=== PATIENT | male | born 1945 | race Caucasian/White ===

== ENCOUNTER 2017-04-19 21:03 | Inpatient (IN) | payer MEDICARE ==
[~2017-04-19] VITALS: Ht 182.9 cm; Wt 108.0 kg
[2017-04-19] MEDS ORDERED: KETOROLAC 60MG/2ML VIAL IM ONE (21:45)
[2017-04-19] MEDS ORDERED: MORPHINE SULFATE 4 MG/ML CPJ (NOT FOR IM USE) IV ONE (22:45)
[2017-04-19] MEDS ORDERED: MORPHINE SULFATE 4 MG/ML CPJ (NOT FOR IM USE) IV PRN (23:15)
[2017-04-19] MEDS ORDERED: MAGNESIUM/ALUMINUM HYDROXIDE/SIMETHICONE 30ML UDC PO PRN (23:15)
[2017-04-19] MEDS ORDERED: DIPHENHYDRAMINE 50MG/ML VIAL IV PRN ×2 (23:15→23:30)
[2017-04-19] MEDS ORDERED: DOCUSATE SODIUM 100MG CAPSULE PO PRN ×2 (23:15→23:30)
[2017-04-19] MEDS ORDERED: CLONIDINE 0.1MG TABLET PO PRN (23:15)
[2017-04-19] MEDS ORDERED: ACETAMINOPHEN 325MG TABLET PO PRN (23:15)
[2017-04-19] MEDS ORDERED: NA PHOS,M-B/NA PHOS,DI-BA ENEMA 118ML PR PRN (23:15)
[2017-04-19] MEDS ORDERED: DEXT 5%/0.9% NACL KCL 20MEQ/L 1,000 ML IV SCH (23:15)
[2017-04-19] MEDS ORDERED: GUAIFENESIN 200MG/10ML SUGAR FREE UDC PO PRN ×2 (23:15→23:30)
[2017-04-19] MEDS ORDERED: ZOLPIDEM TARTRATE 5MG TABLET PO PRN (23:15)
[2017-04-19] MEDS ORDERED: TRAMADOL 50MG TABLET PO PRN (23:15)
[2017-04-19] MEDS ORDERED: IPRATROPIUM/ALBUTEROL 0.5-3(2.5)MG/3ML NEB INH PRN ×2 (23:15→23:30)
[2017-04-19] MEDS ORDERED: LORAZEPAM 2MG/ML CPJ IV PRN ×2 (23:15→23:30)
[2017-04-19] MEDS ORDERED: ONDANSETRON HCL 4MG/2ML VIAL IV PRN (23:15)
[2017-04-19] MEDS ORDERED: ENOXAPARIN 40MG/0.4ML SYR SUBCUT SCH (23:15)
[2017-04-20] MEDS ORDERED: MORPHINE SULFATE 2 MG/ML CPJ (NOT FOR IM USE) IV PRN (00:49)
[2017-04-20] MEDS ORDERED: MORPHINE SULFATE 2 MG/ML CPJ (NOT FOR IM USE) IV ONE (01:00)
[2017-04-20] MEDS ORDERED: MORPHINE SULFATE 4 MG/ML CPJ (NOT FOR IM USE) IV ONE (01:00)
[2017-04-20 01:42] LABS: BASOPHILS % 0.5 % (0.0-2.0); EOSINOPHILS % 1.2 % (0.0-5.0); HEMATOCRIT. 39.4 % (42.0-52.0); HEMOGLOBIN. 13.5 g/dL (14.0-18.0); LYMPHOCYTES % 17.9 % (20.0-50.0); MEAN CORPUSCULAR HEMOGLOBIN 30.2 pg (28.0-32.0); MEAN CORPUSCULAR VOLUME 88.3 fL (80.0-94.0); MEAN PLATELET VOLUME 8.3 fl (7.4-10.4); MONOCYTES % 7.6 % (2.0-8.0); NEUTROPHILS % 72.8 % (40.0-76.0); PLATELET 123 x1000/uL (130-400); RED BLOOD CELL COUNT 4.46 mill/uL (4.7-6.1); RED CELL DISTRIBUTION WIDTH 15.9 % (11.6-14.6)
[2017-04-20 01:48] LABS: INR 1.1; PROTHROMBIN TIME 11.3 sec (9.4-11.6)
[2017-04-20 01:57] LABS: CHLORIDE 106 mEq/L (98-107)
[2017-04-20 03:54] LABS: CARBON DIOXIDE 24 mEq/L (21-32)
[2017-04-20] MEDS ORDERED: DEXTROSE 50% WATER 50ML SYRINGE IV PRN (06:30)
[2017-04-20] MEDS: BLOOD SUGAR DIAGNOSTIC STRIP TEST SCH ×4 (07:20→21:59)
[2017-04-20] MEDS ORDERED: SUCCINYLCHOLINE CHLORIDE 200MG/10ML VIAL IV ONE (07:21)
[2017-04-20] MEDS ORDERED: PROPOFOL 200MG/20ML VIAL IV ONE (07:21)
[2017-04-20] MEDS ORDERED: VECURONIUM BROMIDE 10 MG/VIAL IV ONE (07:21)
[2017-04-20] MEDS ORDERED: PHENYLEPHRINE HCL 10 MG/ML 1ML (IV VIAL) IV ONE ×2 (07:21→07:35)
[2017-04-20] MEDS ORDERED: LIDOCAINE HCL 1% 20ML VIAL (Pyxis) INJ ONE (07:21)
[2017-04-20] MEDS ORDERED: VANCOMYCIN HCL 500 MG/VIAL ONE (07:24)
[2017-04-20] MEDS ORDERED: BACITRACIN ZINC 15GM TUBE TOP ONE (07:24)
[2017-04-20] MEDS ORDERED: BUPIVACAINE HCL/PF 0.5% (5MG/ML) 10ML ONE (07:43)
[2017-04-20] MEDS: INSULIN LISPRO 100 UNITS/ML SUBCUT SCH ×4 (07:50→22:35)
[2017-04-20] MEDS ORDERED: FENTANYL CITRATE/PF 50MCG/ML 2ML VIAL ONE (08:57)
[2017-04-20] MEDS ORDERED: TRANEXAMIC ACID 1,000 MG in SODIUM CHLORIDE 0.9% 100 ML IV NR (09:00)
[2017-04-20] MEDS: ENOXAPARIN 30MG/0.3ML SYR SUBCUT SCH ×2 (09:00→21:59)
[2017-04-20] MEDS ORDERED: ZINC SULFATE 220 MG ( 50 ) CAPSULE PO SCH (09:00)
[2017-04-20] MEDS ORDERED: ALBUMIN HUMAN 12.5G/250ML (5%) IV ONE (09:02)
[2017-04-20] MEDS ORDERED: ALBUMIN HUMAN 12.5GM/50ML (25%) IV ONE (09:03)
[2017-04-20] MEDS ORDERED: ETOMIDATE 2MG/ML 10ML VIAL IV ONE (10:26)
[2017-04-20] MEDS ORDERED: NEOSTIGMINE METHYLSULFATE 1MG/ML 10 ML VIAL ONE (10:27)
[2017-04-20] MEDS ORDERED: DEXAMETHASONE 4MG/ML 1ML VIAL ONE (10:27)
[2017-04-20] MEDS ORDERED: GLYCOPYRROLATE 0.2 MG/ML 2ML VIAL ONE (10:27)
[2017-04-20] MEDS ORDERED: ONDANSETRON HCL 4MG/2ML VIAL IV PRN (11:00)
[2017-04-20] MEDS ORDERED: HYDROMORPHONE HCL/PF 2MG/ML CPJ IV PRN (11:00)
[2017-04-20 12:00] VITALS: BP 106/70
[2017-04-20] MEDS ORDERED: SPIR100T24 PO (14:08)
[2017-04-20] MEDS ORDERED: ATEN50TA PO (14:08)
[2017-04-20] MEDS ORDERED: FURO40TA5 PO (14:08)
[2017-04-20] MEDS ORDERED: RIFA550T PO (14:08)
[2017-04-20] MEDS ORDERED: OMEP40CA34 PO (14:08)
[2017-04-20] MEDS: ZINC SULFATE 220 MG ( 50 ) CAPSULE PO SCH (14:09)
[2017-04-20] MEDS: SPIRONOLACTONE 100MG TABLET PO SCH (14:53)
[2017-04-20] MEDS: FUROSEMIDE 40MG TABLET PO SCH (14:53)
[2017-04-20] MEDS: MORPHINE SULFATE 4 MG/ML CPJ (NOT FOR IM USE) IV PRN ×2 (15:00→22:00)
[2017-04-20 16:00] VITALS: BP 115/67
[2017-04-20] MEDS: CEFAZOLIN 1000MG PREMIX 50 ML IV SCH (17:43)
[2017-04-20 20:00] VITALS: BP 108/66
[2017-04-21] VITALS (7 sets, daily range): BP systolic 94–123; BP diastolic 56–72
[2017-04-21] MEDS: CEFAZOLIN 1000MG PREMIX 50 ML IV SCH (01:01)
[2017-04-21] MEDS: BLOOD SUGAR DIAGNOSTIC STRIP TEST SCH ×4 (07:20→21:00)
[2017-04-21] MEDS: INSULIN LISPRO 100 UNITS/ML SUBCUT SCH ×4 (07:50→21:44)
[2017-04-21] MEDS ORDERED: DEXT 5%/0.9% NACL KCL 20MEQ/L 1,000 ML IV SCH (08:00)
[2017-04-21] MEDS: SPIRONOLACTONE 100MG TABLET PO SCH ×2 (08:58→17:34)
[2017-04-21] MEDS: FUROSEMIDE 40MG TABLET PO SCH ×2 (08:58→17:34)
[2017-04-21] MEDS: ZINC SULFATE 220 MG ( 50 ) CAPSULE PO SCH (08:58)
[2017-04-21] MEDS: ENOXAPARIN 30MG/0.3ML SYR SUBCUT SCH ×2 (08:58→20:39)
[2017-04-21] MEDS: MORPHINE SULFATE 4 MG/ML CPJ (NOT FOR IM USE) IV PRN ×2 (10:51→20:56)
[2017-04-21] MEDS: DOCUSATE SODIUM 100MG CAPSULE PO SCH (17:33)
[2017-04-21] MEDS ORDERED: POLYETHYLENE GLYCOL 3350 (17GM) 1 DOSE PACK PO SCH (21:00)
[2017-04-22] VITALS: BP 104/63
[2017-04-22 03:47] VITALS: BP 115/69
[2017-04-22] MEDS: BLOOD SUGAR DIAGNOSTIC STRIP TEST SCH ×3 (06:20→16:22)
[2017-04-22] MEDS: INSULIN LISPRO 100 UNITS/ML SUBCUT SCH ×2 (06:57→16:43)
[2017-04-22 08:00] VITALS: BP 101/61
[2017-04-22] MEDS ORDERED: LACTULOSE 20G/30ML UDC PO STA (08:41)
[2017-04-22 08:56] LABS: BASOPHILS % 0.6 % (0.0-2.0); EOSINOPHILS % 1.7 % (0.0-5.0); HEMATOCRIT. 34.1 % (42.0-52.0); HEMOGLOBIN. 11.7 g/dL (14.0-18.0); LYMPHOCYTES % 14.1 % (20.0-50.0); MEAN CORPUSCULAR HEMOGLOBIN 30.1 pg (28.0-32.0); MEAN CORPUSCULAR VOLUME 87.8 fL (80.0-94.0); MEAN PLATELET VOLUME 8.5 fl (7.4-10.4); MONOCYTES % 9.8 % (2.0-8.0); NEUTROPHILS % 73.8 % (40.0-76.0); PLATELET 119 x1000/uL (130-400); RED BLOOD CELL COUNT 3.89 mill/uL (4.7-6.1); RED CELL DISTRIBUTION WIDTH 15.9 % (11.6-14.6)
[2017-04-22] MEDS: FUROSEMIDE 40MG TABLET PO SCH ×2 (09:00→09:38)
[2017-04-22] MEDS: LACTULOSE 20G/30ML UDC PO SCH ×2 (09:00→16:23)
[2017-04-22] MEDS: SPIRONOLACTONE 100MG TABLET PO SCH ×2 (09:00→09:38)
[2017-04-22] MEDS: ZINC SULFATE 220 MG ( 50 ) CAPSULE PO SCH ×2 (09:00→09:38)
[2017-04-22] MEDS: ENOXAPARIN 30MG/0.3ML SYR SUBCUT SCH (09:00)
[2017-04-22] MEDS: MORPHINE SULFATE 4 MG/ML CPJ (NOT FOR IM USE) IV PRN (09:53)
[2017-04-22] MEDS: DOCUSATE SODIUM 100MG CAPSULE PO SCH ×2 (09:54→16:22)
[2017-04-22 10:18] LABS: CARBON DIOXIDE 21 mEq/L (21-32); CHLORIDE 101 mEq/L (98-107)
[2017-04-22 15:58] VITALS: BP 113/65
[2017-04-22 16:00] VITALS: BP 113/65
== END 2017-04-22 17:04 | DRG 469 ==
LOC: ER 21:14 → 8WST 21:15 → UNDOADMIN 21:15 → 6EST 23:02 → UNDODISIN 23:20 → ENRESERV 04-20 02:01
PROVIDERS: ADMIT Internal Medicine; ATTEND Internal Medicine
PROC: 0SRS01Z Replacement of Left Hip Joint, Femoral Surface with Metal Synthetic Substitute, Open Approach (ICD-10-PCS; principal; 2017-04-20 07:30)
DX: S72.002A Fracture of unspecified part of neck of left femur, initial encounter for closed fracture (principal); E43 Unspecified severe protein-calorie malnutrition; E11.9 Type 2 diabetes mellitus without complications; K70.30 Alcoholic cirrhosis of liver without ascites; D62 Acute posthemorrhagic anemia; E87.1 Hypo-osmolality and hyponatremia; Z94.4 Liver transplant status; N40.0 Benign prostatic hyperplasia without lower urinary tract symptoms; G57.30 Lesion of lateral popliteal nerve, unspecified lower limb; F10.20 Alcohol dependence, uncomplicated; W10.9XXA Fall (on) (from) unspecified stairs and steps, initial encounter; E66.9 Obesity, unspecified; G89.29 Other chronic pain; I10 Essential (primary) hypertension; R26.9 Unspecified abnormalities of gait and mobility; Z86.73 Personal history of transient ischemic attack (TIA), and cerebral infarction without residual deficits; Z87.891 Personal history of nicotine dependence; Z90.49 Acquired absence of other specified parts of digestive tract; Z90.79 Acquired absence of other genital organ(s); Y92.099 Unspecified place in other non-institutional residence as the place of occurrence of the external cause; Z68.32 Body mass index [BMI] 32.0-32.9, adult
CPT/HCPCS: 36415; 71010; 72170; 73030; 73502; 80053; 82962; 83036; 83690; 85025; 85610; 86850; 86900; 88305; 88311; 93005; 93306; 93970; 96372; 96374; 97110; 97162; 97530; 99285; C1776; J0330; J0690; J1100; J1650; J1815; J1885; J2270; J2370; J2704; J2710; J3010; J3370; J3490; J7050; P9041; P9047

== ENCOUNTER 2017-04-22 07:20 | Inpatient (IN) | payer MEDICARE ==
[~2017-04-22] VITALS: Ht 182.9 cm; Wt 108.0 kg
[~2017-04-22 07:20] MED LIST: ATEN50TA PO; FURO40TA5 PO; OMEP40CA34 PO; RIFA550T PO; SPIR100T24 PO
[2017-04-22] MEDS ORDERED: DEXTROSE 50% WATER 50ML SYRINGE IV PRN (18:30)
[2017-04-22] MEDS ORDERED: ALUMINUM HYDROXIDE 120ML BOTTLE PO PRN (18:45)
[2017-04-22] MEDS ORDERED: ACETAMINOPHEN 650MG/20.3ML UDC PO PRN (18:45)
[2017-04-22] MEDS ORDERED: GUAIFENESIN 200MG/10ML SUGAR FREE UDC PO PRN (18:45)
[2017-04-22] MEDS ORDERED: HYDROCODONE/ACETAMINOPHEN 10/325MG TABLET PO PRN (18:45)
[2017-04-22] MEDS ORDERED: ONDANSETRON HCL 4MG TABLET PO PRN (18:45)
[2017-04-22] MEDS ORDERED: DIPHENHYDRAMINE 25MG CAPSULE PO PRN (18:45)
[2017-04-22] MEDS ORDERED: DOCUSATE SODIUM SUGAR FREE 100MG/10ML UDC NG PRN (18:45)
[2017-04-22] MEDS ORDERED: CLONIDINE 0.1MG TABLET PO PRN (18:45)
[2017-04-22] MEDS ORDERED: IPRATROPIUM/ALBUTEROL 0.5-3(2.5)MG/3ML NEB HHN PRN (18:45)
[2017-04-22] MEDS ORDERED: TRAMADOL 50MG TABLET PO PRN (19:00)
[2017-04-22] MEDS ORDERED: NA PHOS,M-B/NA PHOS,DI-BA ENEMA 118ML PR PRN (19:00)
[2017-04-22] MEDS ORDERED: MAGNESIUM/ALUMINUM HYDROXIDE/SIMETHICONE 30ML UDC PO PRN (19:00)
[2017-04-22 20:00] VITALS: BP 127/71
[2017-04-22] MEDS: POLYETHYLENE GLYCOL 3350 (17GM) 1 DOSE PACK PO SCH (21:00)
[2017-04-22] MEDS: BLOOD SUGAR DIAGNOSTIC STRIP TEST SCH (21:00)
[2017-04-22 21:30] VITALS: BP 127/71
[2017-04-22] MEDS: ENOXAPARIN 30MG/0.3ML SYR SUBCUT SCH (22:06)
[2017-04-22] MEDS: INSULIN LISPRO 100 UNITS/ML SUBCUT SCH (22:10)
[2017-04-23] MEDS: ZOLPIDEM TARTRATE 5MG TABLET PO PRN ×2 (00:41→22:30)
[2017-04-23 06:01] LABS: BASOPHILS % 0.9 % (0.0-2.0); EOSINOPHILS % 2.2 % (0.0-5.0); HEMATOCRIT. 33.2 % (42.0-52.0); HEMOGLOBIN. 11.5 g/dL (14.0-18.0); MEAN CORPUSCULAR HEMOGLOBIN 30.6 pg (28.0-32.0); MEAN CORPUSCULAR VOLUME 88.2 fL (80.0-94.0); MEAN PLATELET VOLUME 7.9 fl (7.4-10.4); MONOCYTES % 11.3 % (2.0-8.0); NEUTROPHILS % 71.6 % (40.0-76.0); PLATELET 119 x1000/uL (130-400); RED BLOOD CELL COUNT 3.76 mill/uL (4.7-6.1); RED CELL DISTRIBUTION WIDTH 15.7 % (11.6-14.6)
[2017-04-23] MEDS: INSULIN LISPRO 100 UNITS/ML SUBCUT SCH ×4 (06:18→21:40)
[2017-04-23] MEDS: BLOOD SUGAR DIAGNOSTIC STRIP TEST SCH ×4 (06:18→21:39)
[2017-04-23 07:25] LABS: CARBON DIOXIDE 22 mEq/L (21-32); CHLORIDE 101 mEq/L (98-107)
[2017-04-23 07:28] LABS: PREALBUMIN 4.7 mg/dL (20.0-40.0)
[2017-04-23 08:00] VITALS: BP 85/54
[2017-04-23 09:15] VITALS: BP 111/65
[2017-04-23] MEDS: FUROSEMIDE 40MG TABLET PO SCH (09:16)
[2017-04-23] MEDS: DOCUSATE SODIUM 100MG CAPSULE PO SCH ×2 (09:16→17:17)
[2017-04-23] MEDS: SPIRONOLACTONE 100MG TABLET PO SCH (09:17)
[2017-04-23] MEDS: ZINC SULFATE 220 MG ( 50 ) CAPSULE PO SCH (09:17)
[2017-04-23] MEDS: ENOXAPARIN 30MG/0.3ML SYR SUBCUT SCH ×2 (09:27→17:17)
[2017-04-23] MEDS ORDERED: OXYCODONE HCL 5MG TABLET PO PRN (11:15)
[2017-04-23 11:30] VITALS: BP 109/79
[2017-04-23] MEDS: OXYCODONE HCL 5MG TABLET PO PRN ×2 (11:41→21:39)
[2017-04-23 19:00] VITALS: BP 144/86
[2017-04-23] MEDS ORDERED: LACTULOSE 20G/30ML UDC PO PRN (21:30)
[2017-04-23] MEDS: POLYETHYLENE GLYCOL 3350 (17GM) 1 DOSE PACK PO SCH (21:39)
[2017-04-24] MEDS: INSULIN LISPRO 100 UNITS/ML SUBCUT SCH ×3 (06:48→17:15)
[2017-04-24] MEDS: BLOOD SUGAR DIAGNOSTIC STRIP TEST SCH ×4 (06:48→21:28)
[2017-04-24 08:00] VITALS: BP 104/62
[2017-04-24] MEDS: OXYCODONE HCL 5MG TABLET PO PRN (08:01)
[2017-04-24] MEDS: ENOXAPARIN 30MG/0.3ML SYR SUBCUT SCH ×2 (08:03→17:20)
[2017-04-24] MEDS: DOCUSATE SODIUM 100MG CAPSULE PO SCH ×2 (08:04→17:20)
[2017-04-24] MEDS: ASCORBIC ACID 500 MG TABLET PO SCH ×2 (08:04→21:27)
[2017-04-24] MEDS: FERROUS SULFATE 300MG/5ML UDC PO SCH ×3 (08:04→17:20)
[2017-04-24] MEDS: ZINC SULFATE 220 MG ( 50 ) CAPSULE PO SCH (08:04)
[2017-04-24 09:30] VITALS: BP 129/78
[2017-04-24] MEDS: SPIRONOLACTONE 100MG TABLET PO SCH (09:56)
[2017-04-24] MEDS: FUROSEMIDE 40MG TABLET PO SCH (09:56)
[2017-04-24 16:00] VITALS: BP 104/63
[2017-04-24] MEDS: OXYCODONE HCL 5MG TABLET PO SCH ×2 (16:09→21:28)
[2017-04-24 20:00] VITALS: BP 105/65
[2017-04-24] MEDS: POLYETHYLENE GLYCOL 3350 (17GM) 1 DOSE PACK PO SCH (21:28)
[2017-04-24] MEDS: ZOLPIDEM TARTRATE 5MG TABLET PO PRN (23:07)
[2017-04-25] MEDS: BLOOD SUGAR DIAGNOSTIC STRIP TEST SCH ×4 (06:17→21:02)
[2017-04-25] MEDS: OXYCODONE HCL 5MG TABLET PO SCH ×3 (06:23→21:02)
[2017-04-25] MEDS: INSULIN LISPRO (LOW DOSE) 100 UNITS/ML SUBCUT SCH ×4 (06:32→21:15)
[2017-04-25] MEDS ORDERED: INSULIN LISPRO 100 UNITS/ML SUBCUT SCH (07:00)
[2017-04-25 07:19] LABS: CORTISOL 8.2 ucg/dL
[2017-04-25 07:30] LABS: CARBON DIOXIDE 26 mEq/L (21-32); CHLORIDE 97 mEq/L (98-107); HDL CHOLESTEROL 17 mg/dL (40-59); LDL CHOLESTEROL 152 mg/dL (5-100); PHOSPHORUS 2.7 mg/dL (2.5-4.9)
[2017-04-25 07:33] LABS: HEPATITIS B SURFACE ANTIGEN NEGATIVE
[2017-04-25 07:36] LABS: PROSTRATE SPECIFIC AG TOTAL 0.61 ng/mL (0.0-4.0)
[2017-04-25 07:38] LABS: BASOPHILS % 0.7 % (0.0-2.0); EOSINOPHILS % 3.9 % (0.0-5.0); HEMATOCRIT. 34.5 % (42.0-52.0); HEMOGLOBIN. 11.8 g/dL (14.0-18.0); LYMPHOCYTES % 17.7 % (20.0-50.0); MEAN CORPUSCULAR HEMOGLOBIN 30.4 pg (28.0-32.0); MEAN CORPUSCULAR VOLUME 89.1 fL (80.0-94.0); MEAN PLATELET VOLUME 8.4 fl (7.4-10.4); NEUTROPHILS % 64.7 % (40.0-76.0); PLATELET 159 x1000/uL (130-400); RED BLOOD CELL COUNT 3.87 mill/uL (4.7-6.1); RED CELL DISTRIBUTION WIDTH 15.8 % (11.6-14.6)
[2017-04-25 07:39] LABS: TOTAL IRON BINDING CAPACITY 212 ug/dL (250-450)
[2017-04-25 08:00] VITALS: BP 98/65
[2017-04-25 08:01] LABS: HEPATITIS B CORE AB IGM NEGATIVE
[2017-04-25 08:03] LABS: HEPATITIS A AB IGM NEGATIVE (NEGATIVE)
[2017-04-25 08:18] LABS: FOLIC ACID (FOLATE) SERUM 12.1 ng/mL (>5.38)
[2017-04-25] MEDS: SPIRONOLACTONE 100MG TABLET PO SCH (09:00)
[2017-04-25] MEDS: FUROSEMIDE 40MG TABLET PO SCH (09:00)
[2017-04-25] MEDS: FERROUS SULFATE 300MG/5ML UDC PO SCH ×3 (09:19→16:31)
[2017-04-25] MEDS: DOCUSATE SODIUM 100MG CAPSULE PO SCH ×2 (09:19→16:31)
[2017-04-25] MEDS: ASCORBIC ACID 500 MG TABLET PO SCH ×2 (09:19→21:01)
[2017-04-25] MEDS: NATEGLINIDE 120 MG PO SCH ×3 (09:19→16:31)
[2017-04-25] MEDS: ENOXAPARIN 30MG/0.3ML SYR SUBCUT SCH ×2 (09:20→16:32)
[2017-04-25] MEDS: ZINC SULFATE 220 MG ( 50 ) CAPSULE PO SCH (09:21)
[2017-04-25 20:00] VITALS: BP 127/75
[2017-04-25] MEDS: POLYETHYLENE GLYCOL 3350 (17GM) 1 DOSE PACK PO SCH (21:00)
[2017-04-25] MEDS ORDERED: OMEPRAZOLE 20MG CAPSULE EXTENDED RELEASE PO NR (21:00)
[2017-04-25] MEDS: ZOLPIDEM TARTRATE 5MG TABLET PO PRN (22:02)
[2017-04-26] MEDS: BLOOD SUGAR DIAGNOSTIC STRIP TEST SCH ×4 (06:17→21:01)
[2017-04-26] MEDS: OMEPRAZOLE 20MG CAPSULE EXTENDED RELEASE PO SCH (06:17)
[2017-04-26] MEDS: OXYCODONE HCL 5MG TABLET PO SCH ×3 (06:19→21:01)
[2017-04-26] MEDS: INSULIN LISPRO (LOW DOSE) 100 UNITS/ML SUBCUT SCH ×4 (07:19→21:00)
[2017-04-26 07:59] VITALS: BP 113/69
[2017-04-26] MEDS: MICONAZOLE NITRATE 2% OINT 71GM TOP SCH ×2 (09:00→21:03)
[2017-04-26] MEDS: NATEGLINIDE 120 MG PO SCH ×3 (09:11→17:02)
[2017-04-26] MEDS: FERROUS SULFATE 300MG/5ML UDC PO SCH ×3 (09:11→17:02)
[2017-04-26] MEDS: LACTULOSE 20G/30ML UDC PO SCH ×3 (09:11→16:32)
[2017-04-26] MEDS: DOCUSATE SODIUM 100MG CAPSULE PO SCH ×2 (09:11→17:02)
[2017-04-26] MEDS: ASCORBIC ACID 500 MG TABLET PO SCH ×2 (09:11→21:01)
[2017-04-26] MEDS: SPIRONOLACTONE 100MG TABLET PO SCH (09:11)
[2017-04-26] MEDS: ZINC SULFATE 220 MG ( 50 ) CAPSULE PO SCH (09:11)
[2017-04-26] MEDS: FUROSEMIDE 40MG TABLET PO SCH (09:11)
[2017-04-26] MEDS: ENOXAPARIN 30MG/0.3ML SYR SUBCUT SCH ×2 (09:12→17:02)
[2017-04-26 20:00] VITALS: BP 111/67
[2017-04-26] MEDS: POLYETHYLENE GLYCOL 3350 (17GM) 1 DOSE PACK PO SCH (21:00)
[2017-04-26] MEDS: ZOLPIDEM TARTRATE 5MG TABLET PO PRN (21:56)
[2017-04-27] MEDS: BLOOD SUGAR DIAGNOSTIC STRIP TEST SCH ×4 (06:10→21:52)
[2017-04-27] MEDS: INSULIN LISPRO (LOW DOSE) 100 UNITS/ML SUBCUT SCH ×4 (06:20→21:00)
[2017-04-27] MEDS: OMEPRAZOLE 20MG CAPSULE EXTENDED RELEASE PO SCH (06:46)
[2017-04-27] MEDS: OXYCODONE HCL 5MG TABLET PO SCH (06:51)
[2017-04-27 07:20] LABS: BASOPHILS % 0.6 % (0.0-2.0); EOSINOPHILS % 3.8 % (0.0-5.0); HEMATOCRIT. 34.7 % (42.0-52.0); HEMOGLOBIN. 11.8 g/dL (14.0-18.0); LYMPHOCYTES % 21.9 % (20.0-50.0); MEAN CORPUSCULAR HEMOGLOBIN 30.2 pg (28.0-32.0); MEAN CORPUSCULAR VOLUME 88.8 fL (80.0-94.0); MEAN PLATELET VOLUME 8.1 fl (7.4-10.4); MONOCYTES % 14.1 % (2.0-8.0); NEUTROPHILS % 59.6 % (40.0-76.0); PLATELET 203 x1000/uL (130-400); RED CELL DISTRIBUTION WIDTH 16.1 % (11.6-14.6)
[2017-04-27 07:35] LABS: CARBON DIOXIDE 24 mEq/L (21-32); CHLORIDE 100 mEq/L (98-107)
[2017-04-27 08:00] VITALS: BP 103/68
[2017-04-27] MEDS: ENOXAPARIN 30MG/0.3ML SYR SUBCUT SCH ×2 (08:43→21:51)
[2017-04-27] MEDS: FERROUS SULFATE 300MG/5ML UDC PO SCH ×2 (08:44→12:14)
[2017-04-27] MEDS: ZINC SULFATE 220 MG ( 50 ) CAPSULE PO SCH (08:45)
[2017-04-27] MEDS: ASCORBIC ACID 500 MG TABLET PO SCH ×2 (08:45→21:51)
[2017-04-27] MEDS: DOCUSATE SODIUM 100MG CAPSULE PO SCH ×2 (08:45→17:07)
[2017-04-27] MEDS: NATEGLINIDE 120 MG PO SCH ×3 (08:46→17:07)
[2017-04-27] MEDS: FUROSEMIDE 40MG TABLET PO SCH (08:48)
[2017-04-27] MEDS: MICONAZOLE NITRATE 2% OINT 71GM TOP SCH ×2 (08:49→21:53)
[2017-04-27] MEDS: SPIRONOLACTONE 100MG TABLET PO SCH (08:49)
[2017-04-27 13:09] LABS: *CREATININE RANDOM URINE 35.7 mg/dL (Not Estab.); MICROALBUMIN RANDOM URINE <3.0 ug/mL (Not Estab.)
[2017-04-27] MEDS: SUCRALFATE 1G TABLET PO SCH ×2 (17:07→21:51)
[2017-04-27 20:00] VITALS: BP 110/67
[2017-04-27] MEDS: ZOLPIDEM TARTRATE 5MG TABLET PO PRN (21:52)
[2017-04-27] MEDS: POLYETHYLENE GLYCOL 3350 (17GM) 1 DOSE PACK PO SCH (21:52)
[2017-04-27] MEDS: OXYCODONE HCL 5MG TABLET PO PRN (23:59)
[2017-04-28] MEDS: BLOOD SUGAR DIAGNOSTIC STRIP TEST SCH ×4 (06:46→20:47)
[2017-04-28] MEDS: INSULIN LISPRO (LOW DOSE) 100 UNITS/ML SUBCUT SCH ×4 (06:46→20:46)
[2017-04-28] MEDS: OMEPRAZOLE 20MG CAPSULE EXTENDED RELEASE PO SCH (06:47)
[2017-04-28] MEDS: SUCRALFATE 1G TABLET PO SCH ×4 (06:47→20:46)
[2017-04-28 07:56] LABS: BASOPHILS % 1.2 % (0.0-2.0); EOSINOPHILS % 3.7 % (0.0-5.0); HEMATOCRIT. 33.2 % (42.0-52.0); HEMOGLOBIN. 11.3 g/dL (14.0-18.0); LYMPHOCYTES % 20.7 % (20.0-50.0); MEAN CORPUSCULAR HEMOGLOBIN 30.1 pg (28.0-32.0); MEAN CORPUSCULAR VOLUME 88.7 fL (80.0-94.0); MEAN PLATELET VOLUME 7.7 fl (7.4-10.4); MONOCYTES % 12.3 % (2.0-8.0); NEUTROPHILS % 62.1 % (40.0-76.0); PLATELET 195 x1000/uL (130-400); RED BLOOD CELL COUNT 3.74 mill/uL (4.7-6.1); RED CELL DISTRIBUTION WIDTH 15.9 % (11.6-14.6)
[2017-04-28 08:00] VITALS: BP 102/63
[2017-04-28] MEDS: SPIRONOLACTONE 100MG TABLET PO SCH (08:08)
[2017-04-28] MEDS: NATEGLINIDE 120 MG PO SCH ×3 (08:19→16:59)
[2017-04-28] MEDS: ZINC SULFATE 220 MG ( 50 ) CAPSULE PO SCH (08:19)
[2017-04-28] MEDS: DOCUSATE SODIUM 100MG CAPSULE PO SCH ×2 (08:19→16:59)
[2017-04-28] MEDS: FUROSEMIDE 40MG TABLET PO SCH (08:19)
[2017-04-28] MEDS: ASCORBIC ACID 500 MG TABLET PO SCH ×2 (08:19→20:46)
[2017-04-28] MEDS: ENOXAPARIN 30MG/0.3ML SYR SUBCUT SCH ×2 (08:21→20:46)
[2017-04-28 08:30] LABS: CHLORIDE 102 mEq/L (98-107)
[2017-04-28 08:36] LABS: CARBON DIOXIDE 23 mEq/L (21-32)
[2017-04-28] MEDS: MICONAZOLE NITRATE 2% OINT 71GM TOP SCH ×2 (08:52→20:47)
[2017-04-28] MEDS ORDERED: ENOXAPARIN 30MG/0.3ML SYR SUBCUT SCH (09:00)
[2017-04-28 10:07] LABS: 25-HYDROXY VITAMIN D3 24 ng/mL (.)
[2017-04-28] MEDS: LACTULOSE 20G/30ML UDC PO SCH ×2 (16:59→21:38)
[2017-04-28 20:00] VITALS: BP 94/59
[2017-04-28] MEDS: ZOLPIDEM TARTRATE 5MG TABLET PO PRN (21:38)
[2017-04-28] MEDS: OXYCODONE HCL 5MG TABLET PO PRN (23:20)
[2017-04-29] MEDS: SUCRALFATE 1G TABLET PO SCH ×4 (06:11→21:10)
[2017-04-29] MEDS: BLOOD SUGAR DIAGNOSTIC STRIP TEST SCH ×4 (06:11→21:10)
[2017-04-29] MEDS: OMEPRAZOLE 20MG CAPSULE EXTENDED RELEASE PO SCH (06:11)
[2017-04-29] MEDS: LACTULOSE 20G/30ML UDC PO SCH ×3 (06:11→21:11)
[2017-04-29] MEDS: INSULIN LISPRO (LOW DOSE) 100 UNITS/ML SUBCUT SCH ×3 (06:29→17:00)
[2017-04-29] MEDS: SPIRONOLACTONE 100MG TABLET PO SCH (07:44)
[2017-04-29 08:00] VITALS: BP 100/64
[2017-04-29] MEDS: NATEGLINIDE 120 MG PO SCH (08:26)
[2017-04-29] MEDS: ASCORBIC ACID 500 MG TABLET PO SCH ×2 (08:27→21:10)
[2017-04-29] MEDS: DOCUSATE SODIUM 100MG CAPSULE PO SCH ×2 (08:27→17:00)
[2017-04-29] MEDS: ZINC SULFATE 220 MG ( 50 ) CAPSULE PO SCH (08:28)
[2017-04-29] MEDS: FUROSEMIDE 40MG TABLET PO SCH (08:28)
[2017-04-29] MEDS: ENOXAPARIN 30MG/0.3ML SYR SUBCUT SCH ×2 (08:29→21:10)
[2017-04-29] MEDS ORDERED: ERGOCALCIFEROL 50000UNITS CAPSULE PO SCH (11:30)
[2017-04-29] MEDS ORDERED: INSULIN LISPRO 100 UNITS/ML SUBCUT SCH (12:00)
[2017-04-29] MEDS: INSULIN LISPRO 100 UNITS/ML SUBCUT SCH ×3 (12:40→17:49)
[2017-04-29] MEDS: MICONAZOLE NITRATE 2% OINT 71GM TOP SCH ×2 (13:55→21:10)
[2017-04-29] MEDS ORDERED: DIPHENHYDRAMINE HCL/ZINC ACET 28 GM CREAM TOP PRN (18:30)
[2017-04-29 20:00] VITALS: BP 133/61
[2017-04-30] MEDS: OXYCODONE HCL 5MG TABLET PO PRN (00:05)
[2017-04-30] MEDS: LACTULOSE 20G/30ML UDC PO SCH ×3 (06:00→22:00)
[2017-04-30] MEDS: SUCRALFATE 1G TABLET PO SCH ×4 (06:30→22:35)
[2017-04-30] MEDS: BLOOD SUGAR DIAGNOSTIC STRIP TEST SCH ×4 (06:43→21:00)
[2017-04-30] MEDS: INSULIN LISPRO (LOW DOSE) 100 UNITS/ML SUBCUT SCH ×4 (06:50→22:42)
[2017-04-30] MEDS: INSULIN LISPRO 100 UNITS/ML SUBCUT SCH ×4 (07:12→22:53)
[2017-04-30 08:00] VITALS: BP 105/71
[2017-04-30] MEDS: FUROSEMIDE 40MG TABLET PO SCH (08:24)
[2017-04-30] MEDS: ASCORBIC ACID 500 MG TABLET PO SCH ×2 (08:24→21:00)
[2017-04-30] MEDS: ZINC SULFATE 220 MG ( 50 ) CAPSULE PO SCH (08:24)
[2017-04-30] MEDS: DOCUSATE SODIUM 100MG CAPSULE PO SCH ×2 (08:24→16:55)
[2017-04-30] MEDS: MICONAZOLE NITRATE 2% OINT 71GM TOP SCH ×2 (08:25→22:44)
[2017-04-30] MEDS: FAMOTIDINE 20MG TABLET PO SCH ×2 (08:25→22:35)
[2017-04-30] MEDS: ENOXAPARIN 30MG/0.3ML SYR SUBCUT SCH ×2 (08:25→22:37)
[2017-04-30] MEDS: SPIRONOLACTONE 100MG TABLET PO SCH (08:25)
[2017-04-30 19:00] VITALS: BP 104/68
[2017-04-30] MEDS: ZOLPIDEM TARTRATE 5MG TABLET PO PRN (22:38)
[2017-05-01] MEDS: OXYCODONE HCL 5MG TABLET PO PRN ×2 (01:06→07:48)
[2017-05-01] MEDS: LACTULOSE 20G/30ML UDC PO SCH ×3 (06:00→21:19)
[2017-05-01] MEDS: SUCRALFATE 1G TABLET PO SCH ×4 (06:49→20:40)
[2017-05-01] MEDS: BLOOD SUGAR DIAGNOSTIC STRIP TEST SCH ×4 (06:50→20:45)
[2017-05-01 07:46] LABS: BASOPHILS % 0.8 % (0.0-2.0); EOSINOPHILS % 3.8 % (0.0-5.0); HEMATOCRIT. 32.1 % (42.0-52.0); HEMOGLOBIN. 10.9 g/dL (14.0-18.0); LYMPHOCYTES % 23.5 % (20.0-50.0); MEAN CORPUSCULAR HEMOGLOBIN 30.2 pg (28.0-32.0); MEAN CORPUSCULAR VOLUME 88.9 fL (80.0-94.0); MEAN PLATELET VOLUME 7.7 fl (7.4-10.4); MONOCYTES % 12.8 % (2.0-8.0); NEUTROPHILS % 59.1 % (40.0-76.0); PLATELET 207 x1000/uL (130-400); RED BLOOD CELL COUNT 3.61 mill/uL (4.7-6.1)
[2017-05-01 07:53] LABS: CARBON DIOXIDE 26 mEq/L (21-32); CHLORIDE 102 mEq/L (98-107)
[2017-05-01 08:00] VITALS: BP 109/69
[2017-05-01] MEDS: ZINC SULFATE 220 MG ( 50 ) CAPSULE PO SCH (08:46)
[2017-05-01] MEDS: FAMOTIDINE 20MG TABLET PO SCH ×2 (08:46→20:40)
[2017-05-01] MEDS: FUROSEMIDE 40MG TABLET PO SCH (08:46)
[2017-05-01] MEDS: MICONAZOLE NITRATE 2% OINT 71GM TOP SCH ×2 (08:47→20:41)
[2017-05-01] MEDS: ENOXAPARIN 30MG/0.3ML SYR SUBCUT SCH ×2 (08:47→20:40)
[2017-05-01] MEDS: SPIRONOLACTONE 100MG TABLET PO SCH (08:49)
[2017-05-01] MEDS: DOCUSATE SODIUM 100MG CAPSULE PO SCH (08:50)
[2017-05-01] MEDS: ASCORBIC ACID 500 MG TABLET PO SCH ×2 (08:50→20:41)
[2017-05-01] MEDS: INSULIN LISPRO (LOW DOSE) 100 UNITS/ML SUBCUT SCH ×2 (12:07→17:41)
[2017-05-01] MEDS: INSULIN LISPRO 100 UNITS/ML SUBCUT SCH ×2 (12:43→17:41)
[2017-05-01 20:00] VITALS: BP 104/69
[2017-05-01] MEDS: ZOLPIDEM TARTRATE 5MG TABLET PO PRN (21:18)
[2017-05-02] MEDS: OXYCODONE HCL 5MG TABLET PO PRN (02:37)
[2017-05-02] MEDS: LACTULOSE 20G/30ML UDC PO SCH ×2 (06:00→13:20)
[2017-05-02] MEDS: SUCRALFATE 1G TABLET PO SCH ×2 (06:16→11:15)
[2017-05-02] MEDS: BLOOD SUGAR DIAGNOSTIC STRIP TEST SCH ×2 (06:25→11:22)
[2017-05-02] MEDS: INSULIN LISPRO (LOW DOSE) 100 UNITS/ML SUBCUT SCH ×2 (06:44→12:38)
[2017-05-02] MEDS: INSULIN LISPRO 100 UNITS/ML SUBCUT SCH ×2 (06:44→12:39)
[2017-05-02 08:00] VITALS: BP 101/61
[2017-05-02] MEDS: ASCORBIC ACID 500 MG TABLET PO SCH (09:00)
[2017-05-02] MEDS: SPIRONOLACTONE 100MG TABLET PO SCH (09:00)
[2017-05-02] MEDS: DOCUSATE SODIUM 100MG CAPSULE PO SCH (09:00)
[2017-05-02] MEDS: FAMOTIDINE 20MG TABLET PO SCH (09:23)
[2017-05-02] MEDS: FUROSEMIDE 40MG TABLET PO SCH (09:23)
[2017-05-02] MEDS: ENOXAPARIN 30MG/0.3ML SYR SUBCUT SCH (09:24)
[2017-05-02] MEDS: MICONAZOLE NITRATE 2% OINT 71GM TOP SCH (09:24)
[2017-05-02] MEDS: ZINC SULFATE 220 MG ( 50 ) CAPSULE PO SCH (09:26)
[2017-05-02 13:28] VITALS: BP 101/61
== END 2017-05-02 14:15 | disposition home health service (06) | DRG 535 ==
PROVIDERS: ADMIT Physical Medicine & Rehabilitation Spinal Cord Injury Medicine; ATTEND Internal Medicine
DX: S72.092A Other fracture of head and neck of left femur, initial encounter for closed fracture (principal); E43 Unspecified severe protein-calorie malnutrition; D69.6 Thrombocytopenia, unspecified; E11.42 Type 2 diabetes mellitus with diabetic polyneuropathy; D62 Acute posthemorrhagic anemia; E87.1 Hypo-osmolality and hyponatremia; K70.30 Alcoholic cirrhosis of liver without ascites; E66.9 Obesity, unspecified; I10 Essential (primary) hypertension; M21.372 Foot drop, left foot; B35.1 Tinea unguium; E55.9 Vitamin D deficiency, unspecified; E61.1 Iron deficiency; K21.9 Gastro-esophageal reflux disease without esophagitis; Z96.642 Presence of left artificial hip joint; R20.0 Anesthesia of skin; G89.29 Other chronic pain; F10.20 Alcohol dependence, uncomplicated; R26.9 Unspecified abnormalities of gait and mobility; R53.81 Other malaise; Z90.79 Acquired absence of other genital organ(s); Z86.73 Personal history of transient ischemic attack (TIA), and cerebral infarction without residual deficits; Z88.8 Allergy status to other drugs, medicaments and biological substances; Z82.49 Family history of ischemic heart disease and other diseases of the circulatory system; Z87.891 Personal history of nicotine dependence; Z82.3 Family history of stroke; Z79.4 Long term (current) use of insulin; W10.8XXA Fall (on) (from) other stairs and steps, initial encounter; Y93.01 Activity, walking, marching and hiking; Y92.098 Other place in other non-institutional residence as the place of occurrence of the external cause; Y99.8 Other external cause status; Z68.32 Body mass index [BMI] 32.0-32.9, adult
CPT/HCPCS: 36415; 80048; 80053; 80061; 82043; 82306; 82533; 82570; 82607; 82728; 82746; 82962; 83036; 83540; 83550; 83735; 84100; 84134; 84153; 84300; 84439; 84443; 84550; 84630; 85025; 86705; 86709; 86803; 87340; 93970; 97110; 97112; 97116; 97163; 97166; 97530; 97535; J1650; J1815